=== PATIENT | male | born 1995 | race Caucasian/White ===

== ENCOUNTER 2018-04-04 15:48 | Emergency (ER) | payer BC ==
[2018-04-04 15:56] VITALS: BP 117/83; PULSE 106; TEMP 99.3; BMI 25.8
--- NOTE | 2018-04-04 16:07 | PDOC ---
History of Present Illness - History of Present Illness Initial Comments: 04/04/18 17:34 The patient is a 22 year old male, with a significant PMH of gastroenteritis, who presents to the emergency department via walk-in with 1 day of LLQ abdominal pain, multiple episodes of diarrhea (non bloody) and emesis (non bloody, non bilious). The patient states the LLQ abdominal pain began yesterday around 3 pm while sitting in lecture billings. The patient describes the LLQ pain as constant, rated 8/10, described as a cramping pain, worsened with movement and deep breaths, alleviated with an ice pack, with associated diarrhea >10 episodes (non bloody) and 2 episodes of emesis (non bloody, non bilious). He denies any sick contacts or recent travel. He reports taking Pepto Bismol but states he vomited after. The patient denies chest pain, shortness of breath, headache and dizziness. Denies fever, chills, melena, hematochezia and constipation. Denies dysuria, frequency, urgency and hematuria. Allergies: NKA <Des Perez - Last Filed: 04/04/18 18:16> - General History Source: Patient Exam Limitations: No Limitations <Kaur Alonso - Last Filed: 04/05/18 23:57> - General Chief Complaint: Nausea/Vomiting Stated Complaint: NAUSEA VOMITING DIARRHEA ABDOMINAL CRAMPING Time Seen by Provider: 04/04/18 15:54 Past History <Des Perez - Last Filed: 04/04/18 18:16> - Past Medical History Asthma: Yes COPD: No Other medical history: GASTROENTERITIS - Immunization History Td Vaccination: Yes Immunization Up to Date: Yes - Suicide/Smoking/Psychosocial Hx Smoking Status: No Smoking History: Never smoked Number of Cigarettes Smoked Daily: 0 Information on smoking cessation initiated: No Hx Alcohol Use: Yes (SOCIAL) Drug/Substance Use Hx: No Substance Use Type: Alcohol <Kaur Alonso - Last Filed: 04/05/18 23:57> - Past Medical History Allergies/Adverse Reactions: Allergies Allergy/AdvReac Type Severity Reaction Status Date / Time No Known Allergies Allergy Verified 04/04/18 15:50 Home Medications: Ambulatory Orders Ciprofloxacin [Cipro -] 500 mg PO Q12H #10 tablet 04/04/18 Dicyclomine HCl [Bentyl -] 20 mg PO Q8H PRN #21 tablet 04/04/18 metroNIDAZOLE [Flagyl -] 500 mg PO BID #14 tablet 04/04/18 Review of Systems - Review of Systems Comments:: 04/04/18 17:35 GENERAL/CONSTITUTIONAL: No fever or chills. No weakness. HEAD, EYES, EARS, NOSE AND THROAT: No change in vision. No ear pain or discharge. No sore throat. CARDIOVASCULAR: No chest pain or shortness of breath. RESPIRATORY: No cough, wheezing, or hemoptysis. GASTROINTESTINAL:+LLQ abdominal pain. +Nausea. +Vomit. +Diarrhea. No constipation. GENITOURINARY: No dysuria, frequency, or change in urination. MUSCULOSKELETAL: No joint or muscle swelling or pain. No neck or back pain. SKIN: No rash NEUROLOGIC: No headache, vertigo, loss of consciousness, or change in strength/ sensation. ENDOCRINE: No increased thirst. No abnormal weight change. HEMATOLOGIC/LYMPHATIC: No anemia, easy bleeding, or history of blood clots. ALLERGIC/IMMUNOLOGIC: No hives or skin allergy. <Des Perez - Last Filed: 04/04/18 18:16> *Physical Exam - Vital Signs Last Vital Signs Temp Pulse Resp BP Pulse Ox 99.3 F 106 H 20 117/83 100 04/04/18 15:49 04/04/18 15:49 04/04/18 15:49 04/04/18 15:49 04/04/18 15:49 - Physical Exam Comments: 04/04/18 18:16 GENERAL: Awake, alert, and fully oriented, in no acute distress. Well appearing. HEAD: No signs of trauma EYES: PERRLA, EOMI, sclera anicteric, conjunctiva clear ENT: Auricles normal inspection, hearing grossly normal, nares patent, oropharynx clear without exudates. Moist mucosa NECK: Normal ROM, supple, no lymphadenopathy, JVD, or masses LUNGS: Breath sounds equal, clear to auscultation bilaterally. No wheezes, and no crackles HEART: Regular rate and rhythm, normal S1 and S2, no murmurs, rubs or gallops ABDOMEN: +Left lower quadrant and suprapubic tenderness to palpation. Soft, normoactive bowel sounds. No guarding, no rebound. No masses EXTREMITIES: Normal range of motion, no edema. No clubbing or cyanosis. No cords, erythema, or tenderness NEUROLOGICAL: Cranial nerves II through XII grossly intact. Normal speech, normal gait SKIN: Warm, Dry, normal turgor, no rashes or lesions noted. <Des Perez - Last Filed: 04/04/18 18:16> - Vital Signs Last Vital Signs Temp Pulse Resp BP Pulse Ox 99.3 F 106 H 20 117/83 100 04/04/18 15:49 04/04/18 15:49 04/04/18 15:49 04/04/18 15:49 04/04/18 15:49 <Kaur Alonso - Last Filed: 04/05/18 23:57> ED Treatment Course - LABORATORY CBC & Chemistry Diagram: 04/04/18 16:45 04/04/18 16:45 - ADDITIONAL ORDERS Additional order review: Laboratory Results 04/04/18 16:45 Sodium 136 Potassium 4.0 Chloride 104 Carbon Dioxide 23 Anion Gap 9 BUN 12 Creatinine 0.9 Creat Clearance w eGFR > 60 Random Glucose 96 Calcium 9.4 Total Bilirubin 1.2 H AST 20 ALT 19 Alkaline Phosphatase 106 H Total Protein 8.0 Albumin 4.3 Total Amylase 84 04/04/18 16:45 RBC 5.32 MCV 82.6 MCHC 33.8 RDW 13.0 MPV 8.8 Neutrophils % 89.9 H Lymphocytes % 4.4 L Monocytes % 5.6 Eosinophils % 0.0 Basophils % 0.1 - Medications Given in the ED: ED Medications Discontinued Medications Generic Name Dose Route Start Last Admin Trade Name Freq PRN Reason Stop Dose Admin Hyoscyamine Sulfate 0.125 mg 04/04/18 16:13 04/04/18 16:51 Levsin Odt - PO 04/04/18 16:14 0.125 mg ONCE ONE Administration Sodium Chloride 1,000 mls @ 1,000 mls/hr 04/04/18 16:18 04/04/18 16:51 Normal Saline - IV 04/04/18 17:17 1,000 mls/hr ASDIR STA Administration Ondansetron HCl 4 mg 04/04/18 16:13 04/04/18 16:51 Zofran Injection IVPUSH 04/04/18 16:14 4 mg ONCE ONE Administration <Des Perez - Last Filed: 04/04/18 18:16> - LABORATORY CBC & Chemistry Diagram: 04/04/18 16:45 04/04/18 16:45 <Kaur Alonso - Last Filed: 04/05/18 23:57> Medical Decision Making - Medical Decision Making 22 yo M who presents to the ER today with nausea, vomiting, diarrhea, abdominal pain Pt had been in his usual state of health until yesterday at 3pm while in class He developed abdominal pain and was diaphoretic He then had diarrhea - non bloody, non mucoid Since yesterday, he has had an uncountable number of episodes of diarrhea No fevers that he has noted (+) vomiting x 4 - non bloody, non bilious DD: Given vomiting and diarrhea, consistent with gastroenteritis Possible colitis Possible enteritis Appy considered, pt has no RLQ tenderness No abd distention to suggest SBO Will do: Labs IVF Re assess Stool cultures 04/04/18 17:54 Laboratory Tests 04/04/18 04/04/18 16:45 16:45 WBC 14.4 H Hgb 14.9 Hct 43.9 Plt Count 340 Neutrophils % 89.9 H Lymphocytes % 4.4 L Sodium 136 Potassium 4.0 Chloride 104 Carbon Dioxide 23 BUN 12 Creatinine 0.9 Random Glucose 96 Total Bilirubin 1.2 H AST 20 ALT 19 Total Amylase 84 04/04/18 18:55 Patient is no right lower quadrant tenderness upon reassessment. He has no rebound or guarding or rebound. Patient's pain is primarily in the left lower quadrant. Patient is attempting to give a stool samples. Will plan to: Discharge patient with prescription for Cipro Patient will follow up with his primary care physician and GI at [facility] within 2-3 days Pt given strict instructions to return if pain worsens, fevers, inability to tolerate po Clinical Impression: abdominal pain, initial presentation diarrhea, initial presentation <Kaur Alonso - Last Filed: 04/05/18 23:57> *DC/Admit/Observation/Transfer - Attestations Scribe Attestion: 04/04/18 17:35 Documentation prepared by Des Perez, acting as medical technologist prn for Kaur Alonso MD. <Des Perez - Last Filed: 04/04/18 18:16> - Discharge Dispostion Decision to Admit order: No <Kaur Alonso - Last Filed: 04/05/18 23:57> Diagnosis at time of Disposition: Diarrhea Qualifiers: Diarrhea type: unspecified type Qualified Code(s): R19.7 - Diarrhea, unspecified Abdominal pain Qualifiers: Abdominal location: left lower quadrant Qualified Code(s): R10.32 - Left lower quadrant pain - Discharge Dispostion Disposition: HOME Condition at time of disposition: Stable - Prescriptions Prescriptions: Ciprofloxacin [Cipro -] 500 mg PO Q12H #10 tablet Dicyclomine HCl [Bentyl -] 20 mg PO Q8H PRN #21 tablet PRN Reason: abdominal pain metroNIDAZOLE [Flagyl -] 500 mg PO BID #14 tablet - Patient Instructions Printed Discharge Instructions: Diarrhea, DI for Abdominal Pain-Adult Additional Instructions: Misael Thank you for coming into the ER today. Please take medications as prescribed. Please be sure to call your primary care physician as soon as possible for a follow-up appointment either Saturday or Saturday. Please also follow up with GI either Saturday or Saturday of next week. Please monitor yourself or fevers or chills. Return to the ER for any concerns or complaints, any worsening of her symptoms - Post Discharge Activity Forms/Work/School Notes: Back to Work
[2018-04-04] MEDS ORDERED: ONDANSETRON 4 MG/2 ML VIAL IVPUSH ONE (16:13)
[2018-04-04] MEDS ORDERED: HYOSCYAMINE SULFATE 0.125 MG *ODT PO ONE (16:13)
[2018-04-04] MEDS ORDERED: SODIUM CHLORIDE 1,000 ML IV STA (16:18)
[2018-04-04] MEDS ORDERED: HYOSCYAMINE SULFATE 0.125 MG *ODT ONE (16:48)
[2018-04-04 17:13] LABS: BASO % 0.1 % (0-2.0); HEMATOCRIT 43.9 % (35.4-49); HEMOGLOBIN 14.9 GM/dl (11.7-16.9); LYMPH % 4.4 % (8-40); MCHC 33.8 g/dl (32.0-35.9); MEAN CELL VOLUME 82.6 fl (80-96); MEAN PLT VOLUME 8.8 fl (7.5-11.1); MONO % 5.6 % (3.8-10.2); NEUT % 89.9 % (42.8-82.8); PLATELET COUNT 340 K/MM3 (134-434); RBC 5.32 M/mm3 (4.00-5.60); WHITE BLOOD COUNT 14.4 K/mm3 (4.0-10.8)
[2018-04-04 17:25] LABS: ALBUMIN 4.3 g/dl (3.5-5.0); ALK PHOS 106 U/L (32-92); AMYLASE 84 U/L (25-125); ANION GAP 9 (8-16); BILIRUBIN,TOTAL 1.2 mg/dl (0.2-1.0); BLOOD UREA NITROGEN 12 mg/dl (7-18); CALCIUM 9.4 mg/dl (8.4-10.2); CHLORIDE 104 mmol/L (98-107); CO2 23 mmol/L (22-28); CREATININE 0.9 mg/dl (0.6-1.3); GLUCOSE,RANDOM 96 mg/dl (74-106); SGOT/AST 20 U/L (10-42); SGPT/ALT 19 U/L (10-40); SODIUM 136 mmol/L (136-145)
[2018-04-04 18:00] LABS: LIPASE 136 U/L (73-393)
[2018-04-04 18:11] LABS: URINE APPEARANCE Clear; URINE BILIRUBIN 1+ (NEGATIVE); URINE COLOR Yellow; URINE GLUCOSE (UA) Negative (NEGATIVE); URINE KETONE Trace (NEGATIVE); URINE LEUK ESTERASE Negative (NEGATIVE); URINE NITRITE Negative (NEGATIVE); URINE UROBILINOGEN 0.2 (0.2-1.0)
[2018-04-04 18:13] LABS: URINE PROTEIN 2+ (NEGATIVE)
[2018-04-04 18:47] LABS: EPI CELLS 0-3 /HPF; URINE MUCUS 2+; URINE RBC 0-2 /hpf (0-3); URINE WBC 0-3 (0-2)
== END 2018-04-04 19:32 | disposition home or self-care (01) ==
LOC: FER 15:48
PROC: 3E033GC Introduction of Other Therapeutic Substance into Peripheral Vein, Percutaneous Approach (ICD-10-PCS; principal; 2018-04-04)
PROC: 3E0337Z Introduction of Electrolytic and Water Balance Substance into Peripheral Vein, Percutaneous Approach (ICD-10-PCS; 2018-04-04)
DX: R10.32 Left lower quadrant pain (principal); R19.7 Diarrhea, unspecified
CPT/HCPCS: 36415; 80053; 81003; 81015; 82150; 83690; 85025; 87045; 87046; 87086; 87324; 87449; 99282-25; J7030

== ENCOUNTER 2022-08-09 21:39 | Emergency (ER) | payer BC, OTHER ==
[2022-08-09 21:56] VITALS: BP 127/83; PULSE 81; RESP 16; TEMP 98.6; BMI 26.1
== END 2022-08-09 22:30 | disposition home or self-care (01) ==
LOC: FER 21:39
PROC: 0HQGXZZ Repair Left Hand Skin, External Approach (ICD-10-PCS; principal; 2022-08-09)
DX: S61.213A Laceration without foreign body of left middle finger without damage to nail, initial encounter (principal); Y99.8 Other external cause status
CPT/HCPCS: 99282-25

== ENCOUNTER 2022-08-19 21:17 | Emergency (ER) | payer OTHER ==
[2022-08-19 21:28] VITALS: BP 136/86; PULSE 90; RESP 16; TEMP 98.9; BMI 26.1
== END 2022-08-19 22:07 | disposition home or self-care (01) ==
LOC: FER 21:17
DX: Z48.02 Encounter for removal of sutures (principal)
CPT/HCPCS: 99281-25

== ENCOUNTER 2023-03-01 12:12 | Emergency (ER) | payer OTHER ==
[2023-03-01 12:25] VITALS: BP 135/72; PULSE 72; RESP 18; TEMP 98.4; BMI 34.7
== END 2023-03-01 14:30 | disposition home or self-care (01) ==
LOC: JERFT 12:12
DX: H61.23 Impacted cerumen, bilateral (principal); H92.02 Otalgia, left ear; H91.92 Unspecified hearing loss, left ear
CPT/HCPCS: 99282-25